=== PATIENT | female | born 1985 | race Caucasian/White ===

== ENCOUNTER → 2018-10-19 | Outpatient (REF) | payer OTHER | LOC: M SFHCLERA 14:32 | PROVIDERS: ATTEND Nurse Practitioner Family | DX: J02.9 Acute pharyngitis, unspecified (principal) ==

== ENCOUNTER → 2021-03-07 | Outpatient (CLI) | payer OTHER ==
[~2021-03-07] MED LIST: CLAR5TAB7 PO; FLON1SPR; METF-839 PO; PROAAER10 INH; VALT1TAB PO; VITMTA PO
== END ==
LOC: M LABSMTC 09:55
PROVIDERS: ATTEND Anesthesiology
DX: Z01.818 Encounter for other preprocedural examination (principal); Z20.828 Contact with and (suspected) exposure to other viral communicable diseases

== ENCOUNTER 2021-03-12 08:30 | Day surgery (SDC) | payer OTHER ==
[~2021-03-12] VITALS: Ht 160 cm; Wt 78.8 kg
[~2021-03-12 08:30] MED LIST changes: +NS 1,000 ML IV ONE
[2021-03-12] MEDS ORDERED: LIDOCAINE 2% 100MG/5ML SDV (FOR ANES.) As Ordered ONE (09:06)
[2021-03-12] MEDS ORDERED: propofoL 200 MG/20 ML VIAL As Ordered ONE ×2 (09:06→10:46)
--- NOTE | 2021-03-12 11:01 | ROOR ---
Patient Name: Sally Mcdonald Procedure Date: 03/12/2021 10:33 AM Date of : 1985 Age: 35 Room: [facility] Gender: Female Note Status: Finalized Procedure: Colonoscopy Indications: Hematochezia, Constipation Providers: Leodan Mejias MD Referring MD: NICK MAE MD Requesting Provider: Medicines: Monitored Anesthesia Care Complications: No immediate complications. Procedure: Pre-Anesthesia Assessment: - The heart rate, respiratory rate, oxygen saturations, blood pressure, adequacy of pulmonary ventilation, and response to care were monitored throughout the procedure. The Colonoscope was introduced through the anus and advanced to 10 cm into the ileum. The colonoscopy was performed without difficulty. The patient tolerated the procedure well. The quality of the bowel preparation was good. Findings: The perianal and digital rectal examinations were normal. Small Internal Hemorrhoids. A localized area of granular mucosa was found at the anus. Biopsies were taken with a cold forceps for histology. The exam was otherwise without abnormality on direct and retroflexion views. Impression: - Small Internal Hemorrhoids with shallow erosion, mucosal granularity at the anal verge. Biopsied. - The examination was otherwise normal on direct and retroflexion views. Recommendation: - Await pathology results. - Telephone endoscopist for pathology results in 2 weeks. - Continue present medications. Procedure Code(s): --- Professional --- 48883, Colonoscopy, flexible; with biopsy, single or multiple Diagnosis Code(s): --- Professional --- K59.00, Constipation, unspecified K92.1, Melena (includes Hematochezia) K62.89, Other specified diseases of anus and rectum CPT copyright 2019 [employer]. All rights reserved. The codes documented in this report are preliminary and upon field artillery fire control man review may be revised to meet current compliance requirements. Leodan Mejias MD Leodan Mejias MD 03/12/2021 11:01:12 AM Electronically signed by Leodan Mejias MD Number of Addenda: 0 Note Initiated On: 03/12/2021 10:33 AM Estimated Blood Loss: Estimated blood loss: none.
[2021-03-12 11:20] VITALS: BP 150/93
== END 2021-03-12 11:35 | disposition home or self-care (01) ==
LOC: M OPP 08:30
PROVIDERS: ATTEND Internal Medicine Gastroenterology
DX: K62.89 Other specified diseases of anus and rectum (principal); K64.8 Other hemorrhoids; K92.1 Melena; K59.00 Constipation, unspecified; Z79.84 Long term (current) use of oral hypoglycemic drugs; Z79.899 Other long term (current) drug therapy; Z88.0 Allergy status to penicillin; Z87.891 Personal history of nicotine dependence